=== PATIENT | male | born 2000 | race Caucasian/White ===

== ENCOUNTER → 2024-08-19 10:40 | Outpatient (REF) | payer OTHER, SELFPAY ==
[2024-08-21 06:22] LABS: Quantiferon Mitogen minus NIL 9.97 IU/mL; Quantiferon NIL 0.03 IU/mL; Quantiferon TB Gold Plus Negative (Negative)
== END ==
LOC: OHS 10:40
PROVIDERS: ATTENDING PHYSICIAN Nurse Practitioner Family; FAMILY PHYSICIAN Nurse Practitioner Family
DX: Z23 Encounter for immunization (principal)
CPT/HCPCS: 36415; 86480

== ENCOUNTER 2024-10-18 00:18 | Emergency (ER) | payer BC, SELFPAY ==
[2024-10-18 00:21] VITALS: BP 116/70
[2024-10-18 00:32] VITALS: BMI 24.4
[2024-10-18 00:49] LABS: % Basophils 1.4 % (0-2); % Eosinophils 13.7 % (0-6); % Immature Granulocytes 0.3 % (0-0.5); % Lymphocytes 34.9 % (20.5-51.1); % Monocytes 7.6 % (1.7-9.3); % Neutrophils 42.1 % (42.2-75.2); Absolute Basophils 0.1 10^3/uL (0-0.2); Absolute Eosinophils 0.8 10^3/uL (0-0.7); Absolute Monocytes 0.4 10^3/uL (0.1-0.6); Absolute Neutrophils 2.4 10^3/uL (1.4-6.5); Hematocrit 43.7 % (39.0-52.0); Hemoglobin 15.2 g/dL (13.0-18.0); Mean Corp Hgb Conc. 34.8 g/dL (33.0-37.0); Mean Corpuscular Hgb 30.6 pg (27.0-31.0); Mean Corpuscular Volume 88.1 fL (80.0-94.0); Mean Platelet Volume 10.7 fL (7.4-10.4); Nucleated Red Blood Cells % 0 % (-); Platelet Count 228 10^3/uL (130-400); Red Blood Cell Count 4.96 10^6/uL (4.70-6.10); Red Cell Dist. Width 12.2 % (11.5-14.5); White Blood Cell Count 5.8 10^3/uL (4.8-10.8)
[2024-10-18 01:03] LABS: ALT (SGPT) 59 U/L (0-50); AST (SGOT) 29 U/L (17-59); Albumin 4.7 g/dl (3.5-5.0); Alkaline Phosphatase 68 U/L (38-126); Blood Urea Nitrogen 19 mg/dl (9-20); Calcium 9.7 mg/dl (8.4-10.2); Carbon Dioxide 28 mmol/L (22-30); Chloride 101 mmol/L (98-107); Estimated Creatinine Clearance 114 ml/min; Glucose 103 mg/dl (70-99); Lipase 115 U/L (23-300); Potassium 3.9 mmol/L (3.5-5.1); Sodium 137 mmol/L (135-145); Total Bilirubin 0.8 mg/dl (0.2-1.3); Total Protein 7.3 g/dl (6.3-8.2); eGFR > 60.00
--- NOTE | 2024-10-18 01:05 | ED.GENMED ---
History of Present Illness
General
Chief Complaint: Abdominal Pain
Source: patient
Exam Limitations: none
Time Seen by Provider: 10/18/24 00:54
Nursing documentation reviewed up to this point in time: agreed with
History of Present Illness
History of Present Illness:
24-year-old male presents emergency room complaining of right sided chest pain that began 1 hour ago. He states it is making him cough. He denies any recent travel history, denies any fevers.
Past History
Past History
ED Past Medical History: None
ED Past Surgical History: Other (Ear tubes, left tibia surgery)
Social History
Tobacco: Non-smoker
Alcohol: None
Drug: None
Personal: Single
Living: with family
Employment: Employed
Review of Systems
Review of Systems
Allergies reviewed?: Yes
All Other Systems: Not applicable
Constitutional: Reports no symptoms
EENT: Reports no symptoms
Respiratory: Reports trouble breathing
Cardiac: Reports chest pain
ABD/GI: Reports no symptoms
: Reports no symptoms
Musculoskeletal: Reports no symptoms
Skin: Reports no symptoms
Neurological: Reports no symptoms
Endocrine: Reports no symptoms
Hematologic/Lymphatic: Reports no symptoms
Psychiatric: Reports no symptoms
Phy Exam
Physical Exam
Physical Exam:
Physical Exam
General: no apparent distress, not acutely ill
Neck: supple. no meningeal signs. normal posterior pharynx
Heart: s1/s2 regular rate and rhythm, no murmur. equal radial
pulses.
HEENT: Pupils equal round reactive to light, EOMI
Lungs: no acute respiratory distress. clear bilaterally
Abdomen: normal bowel sounds. not tender. no CVAT
Neuro: alert and oriented. no focal neurological deficits cranial nerves II through XII intact
Skin: no rash
Psychiatric: well kept. interactive and cooperative
Extremities: no edema. no calf tenderness. negative homans. good distal pulses
Scores
Heart Score for Chest Pain Patients
STEMI patient?: No
History: Slightly or Non-Suspicious
ECG: Normal
Age: </= 45 years
Risk Factors: No Risk Factors
Troponin: </= Normal Limit
Heart Score for Chest Pain Patients: 0
Heart Score Risk: 2.5% MACE over next 6 weeks
Course
Orders/Labs/Results
Orders:
Orders
10/18/24 00:39
Electrocardiogram (*1) Urgent
Reason for Study: Chest Pain
10/18/24 00:40
EKG- Treatment ONCE
10/18/24 00:41
Complete Blood Count/With Diff Urgent
Comprehensive Metabolic Panel Urgent
Lipase Urgent
Troponin I Urgent
10/18/24 01:03
Ketorolac [Toradol] 15 mg IV NOW STA
CR Chest - 2 Views Urgent
Comment:
Reason For Exam: right side chest pain
10/18/24 01:08
D-Dimer Urgent
Abnormal Lab Results
10/18/24
00:41
MPV 10.7 H fL
(7.4-10.4)
Absolute Eos (auto) 0.8 H 10^3/uL
(0-0.7)
Neutrophils % 42.1 L %
(42.2-75.2)
Eosinophils % 13.7 H %
(0-6)
Glucose 103 H mg/dl
(70-99)
ALT 59 H U/L
(0-50)
10/18/24 00:41
10/18/24 00:41
Vital Signs
Initial and Last Documented VS:
Initial Vital Signs
Temp Pulse Resp BP Pulse Ox
98.8 F 64 20 116/70 100
10/18/24 00:21 10/18/24 00:21 10/18/24 00:21 10/18/24 00:21 10/18/24 00:21
Last Documented Vital Signs
Temp Pulse Resp BP Pulse Ox
98.8 F 64 17 116/70 100
10/18/24 00:21 10/18/24 01:30 10/18/24 01:24 10/18/24 00:21 10/18/24 00:21
MDM/Problems Addressed
Differential Diagnosis Includes:
PE, ACS, pneumonia, chest wall pain
MDM/Problems Addressed:
24-year-old male with right-sided chest pain, suspect musculoskeletal cause. Chest x-ray no acute findings, normal EKG. D-dimer pending, if negative will plan on discharge home.
*Radiology
Radiology exam reviewed: preliminary read by ED provider (Chest x-ray no acute findings)
*Pulse Oximetry
Patient hypoxic: no
*EKG
Interpreted by ED Provider?: Yes
EKG Intrepretation Date: 10/18/24
EKG Intrepretation Time: 01:09
Interpretation: normal
Comparison EKG: no comparison EKG present
Heart Rate: 64
Rate: normal
Rhythm: sinus
[place]: normal axis
Interval: normal interval
QRS Pattern: normal QRS
Ischemia: no ischemia
*Laboratory Chief Interpretation
Rate: normal
Interpretation: normal
Heart Rate: 66
Rhythm: sinus
*Critical Care Note
Total Time (30-74mins, 75-104mins- exclusive of procedures): Not Applicable
Patient Management
Social determinants of health affecting care: Living situation and Strong social support
Escalation/DeEscalation of care consider admission/obs:
Admit not indicated
ED Attending Note
-
Portions of this chart may have been created with voice recognition software.� Occasional wrong word or��sound alike� substitutions may have occurred due to the inherent limitations of voice recognition software.
Discharge Plan
Departure
Patient Disposition: Home (Routine Discharge)
Date of Disposition: 10/18/24
Time of Disposition: 02:07
Patient with high blood pressure during this ER visit?: No
Condition: Good
Discharge Problem:
Chest pain
Instructions: Chest Pain
Prescriptions:
No Action
montelukast 10 MG tablet
10 mg PO DAILYPRN PRN (Reason: seasonal allergies)
epinephrine [EpiPen] 0.3 MG/0.3/SYRINGE auto-injector
0.3 mg IM PRN PRN (Reason: anaphylaxis)
albuterol sulfate 1 PUFF HFA aerosol inhaler
2 puff inhalation R Q4HPRN PRN (Reason: sob/wheeze)
fluticasone propionate 1 SPRAY spray,suspension
1 spray intranasal DAILYPRN PRN (Reason: seasonal allergies)
Interventions
Interventions:
*Risk Screen - Suicide Last Done: 10/18/24 00:21
*General Assessment Last Done: 10/18/24 00:40
*Neglect/Abuse Screening Last Done: 10/18/24 00:21
ED- Fall Risk Assessment Last Done: 10/18/24 01:18
*ED COVID-19 Vaccine History Last Done: 10/18/24 00:40
QW-Vawbxy-Jipwwekavo Assessment Last Done: 10/18/24 01:18
Discharge Date and Time
Print Language: BENGALI
[2024-10-18] MEDS: TORADOL 15 MG IV (01:11)
[2024-10-18 01:16] LABS: Troponin I < 0.012 ng/ml
[2024-10-18 02:04] LABS: D-Dimer 0.31 ug/mlFEU (0.00-0.50)
== END 2024-10-18 02:35 | disposition home or self-care (01) ==
LOC: EMR 00:18
PROVIDERS: Emergency Medicine; EMERGENCY PHYSICIAN Emergency Medicine; FAMILY PHYSICIAN Nurse Practitioner Family
DX: R07.89 Other chest pain (principal); R05.9 Cough, unspecified
CPT/HCPCS: 99285; 96374; 71046; 80053; 83690; 84484; 85025; 85379; 93005